=== PATIENT | male | born 1955 | race Caucasian/White ===

== ENCOUNTER 2022-12-05 16:28 | Emergency (ER) | payer MEDICARE, SELFPAY ==
[2022-12-05 16:40] VITALS: BP 154/93; PULSE 79; RESP 16; TEMP 36.9; O2SAT 97
--- NOTE | 2022-12-05 16:57 | ED.URI ---
HPI - URI/Sore Throat General Chief Complaint: Upper Respiratory Infection Stated Complaint: Sinus Pain Source: patient and RN notes reviewed History of Present Illness HPI Narrative: 67 yo M presents to urgent care with complaints of left facial pressure, congestion, and runny nose. Pt states he has been battling URI symptoms since Oct and last Sunday, he believes he contracted his 's cold. Pt reports the pressure has gotten worse and he believes he has a sinus infection. Denies any fevers, chills, chest pain, SOB, vomiting, or diarrhea. Pt has been taking Sudafed at home with minimal relief. Related Data Home Medications Medication Instructions Recorded Confirmed atorvastatin 20 mg tablet 20 mg PO DAILY 12/05/22 12/05/22 cyclobenzaprine 10 mg tablet 10 mg PO HS PRN Pain 12/05/22 12/05/22 Allergies Allergy/AdvReac Type Severity Reaction Status Date / Time erythromycin base Allergy Diarrhea Verified 12/05/22 16:48 Review of Systems Review of Systems: CONSTITUTIONAL: Denies fever, chills, or sweats. EYES: Denies visual changes, redness, or discharge. ENT: Reports congestion and facial pressure CARDIOVASCULAR: Denies chest pain, palpitations, or edema. RESPIRATORY: Denies cough or dyspnea. GASTROINTESTINAL: Denies abdominal pain, nausea, vomiting, or diarrhea. GENITOURINARY: Denies dysuria or hematuria. SKIN: Denies rash or itching. MUSCULOSKELETAL: Denies back pain, joint pain, or myalgia. NEUROLOGIC: Denies headache, numbness, or weakness. PMFSH Comments At the time of my signature, I reviewed and agree with the nursing past medical, surgical, social, and family history. There is no relevant family history pertinent to the patient complaint. Exam Narrative: GENERAL: This is a well-nourished, well-developed patient, in no apparent distress. HEAD: normocephalic, atraumatic. EYES: PERRL. Sclera clear/white. Vision is grossly intact. EARS: External ears normal, auditory canals clear and without drainage, TMs normal without perforation. Hearing grossly intact. NOSE: Congestion THROAT: Mucous membranes moist, posterior pharynx clear. NECK: Neck supple, non-tender without lymphadenopathy, masses or thyromegaly. CARDIOVASCULAR: Regular rate and rhythm without murmurs, gallops, or rubs. RESPIRATORY: Clear to auscultation. Breath sounds equal bilaterally. No wheezes, rales, or rhonchi. GASTROINTESTINAL: Abdomen soft, non-tender, nondistended. Bowel sounds are active. No hepato-splenomegaly, or palpable masses. No guarding. SKIN: warm, intact with no suspicious lesions or rash, good texture and turgor. NEURO: awake, alert, and oriented to person, place and time. There were no obvious focal neurologic abnormalities. Course Course Level of Care: Express Care Visit Vital Signs Vital signs: Vital Signs Temperature 98.4 F 12/05/22 16:40 Pulse Rate 79 12/05/22 16:40 Respiratory Rate 16 12/05/22 16:40 Blood Pressure 154/93 H 12/05/22 16:40 Pulse Oximetry 97 12/05/22 16:40 Oxygen Delivery Room Air 12/05/22 16:40 Temperature 98.4 F 12/05/22 16:40 Pulse Rate 79 12/05/22 16:40 Respiratory Rate 16 12/05/22 16:40 Blood Pressure 154/93 H 12/05/22 16:40 Pulse Oximetry 97 12/05/22 16:40 Oxygen Delivery Room Air 12/05/22 16:40 Reviewed MDM - URI/Sore Throat MDM Narrative Medical decision making narrative: Return to urgent care or go to the ER for new or worsening symptoms. Avoid smoking/second-hand smoke. Continue to take Tylenol or Motrin for pain. Increase your Vitamin C intake. Use a humidifier or vaporizer at night. Take Medications as prescribed. Drink plenty of water. 8-10 glasses per day. Use flonase 2 times per day for 5 days then as needed Take mucinex 2 times per day and be sure to take with 8oz of water. Follow up with Primary provider if not getting better. Go to the ER for new or worsening symptoms. Differential Diagnosis Differential diagnosis: Like
[2022-12-05 17:01] VITALS: BP 158/89
== END 2022-12-05 17:01 | disposition home or self-care (01) ==
PROVIDERS: Emergency Provider Nurse Practitioner Family
DX: J32.1 Chronic frontal sinusitis (principal); E78.00 Pure hypercholesterolemia, unspecified
CPT/HCPCS: 99213; G0463